=== PATIENT | female | born 1945 | race Caucasian/White ===

== ENCOUNTER 2022-06-15 03:05 | Inpatient (IN) | payer MEDICARE, BC ==
[~2022-06-15] VITALS: Ht 160 cm; Wt 57.6 kg
--- NOTE | 2022-06-15 03:55 | NUR ---
COVID ANTIGEN SWAB COLLECTED AND SENT TO LAB
--- NOTE | 2022-06-15 03:58 | NUR ---
RFA #20G S/L BLOOD COLLECTED AND SENT TO LAB
--- NOTE | 2022-06-15 04:05 | NUR ---
PT TAKEN TO CT VIA [facility]
[2022-06-15 04:09] LABS: BASOPHILS # (AUTO) 0.1 K/uL (0.0-0.2); EOSINOPHILS % (AUTO) 2.5 % (0.0-6.0); HEMATOCRIT 47 % (33-45); HEMOGLOBIN 15.7 g/dL (11.5-14.8); LYMPHOCYTES # (AUTO) 1.7 K/uL (0.8-4.8); LYMPHOCYTES % (AUTO) 27.3 % (20.0-44.0); MEAN CORPUSCULAR HGB CONC 34 g/dl (31.0-36.0); MEAN CORPUSCULAR VOLUME 99 fL (82-100); MONOCYTES # (AUTO) 0.3 K/uL (0.1-1.30); MONOCYTES % (AUTO) 5.7 % (2.0-12.0); NEUTROPHILS # (AUTO) 3.9 K/uL (1.8-8.9); NEUTROPHILS % (AUTO) 63.5 % (43.0-81.0); PLATELET COUNT (AUTO) 234 K/uL (150-450); WHITE BLOOD COUNT (AUTO) 6.1 K/uL (4.3-11.0)
[2022-06-15 04:16] LABS: CALCIUM, SERUM 8.8 mg/dL (8.5-10.1); CARBON DIOXIDE 26 mmol/L (21-32); CHLORIDE 101 mmol/L (98-107); CREATININE 0.8 mg/dL (0.6-1.3); GLUCOSE 98 mg/dL (74-106); POTASSIUM 3.4 mmol/L (3.5-5.1); SODIUM SERUM 140 mmol/L (136-145); UREA NITROGEN, BLOOD 14 mg/dL (7-18)
[2022-06-15 04:22] LABS: ALANINE AMINOTRANSFERASE 75 U/L (12-78); ALBUMIN 3.6 g/dL (3.4-5.0); ALKALINE PHOSPHATASE 82 U/L (46-116); ASPARTATE AMINOTRANSFERASE 91 U/L (15-37); BILIRUBIN,DIRECT 0.1 mg/dL (0.0-0.2); BILIRUBIN,TOTAL 0.3 mg/dL (0.2-1.0); TOTAL PROTEIN, SERUM 6.9 g/dL (6.4-8.2)
--- NOTE | 2022-06-15 04:43 | NUR ---
URINE COLLECTED AND SENT TO LAB
[2022-06-15] MEDS ORDERED: CEFTRIAXONE 1GM BAG (ER ONLY) 1 GM/50 ML PIGGYBACK IV ONE (05:00)
[2022-06-15] MEDS ORDERED: AZITHROMYCIN 500 MG in IV D5W 250 ML IV ONE (05:00)
[2022-06-15] MEDS ORDERED: CEFTRIAXONE 1GM BAG (ER ONLY) 50 ML IV ONE (05:08)
[2022-06-15] MEDS ORDERED: AZITHROMYCIN 500 MG VIAL ONE (05:09)
[2022-06-15 05:19] LABS: BILIRUBIN,URINE SMALL (NEGATIVE); COLOR,URINE DARK YELLOW (YELLOW); LEUKOCYTE ESTERASE ,URINE NEGATIVE (NEGATIVE); NITRITE, URINE NEGATIVE (NEGATIVE); PH,URINE 5.5 (5.0-8.0); PROTEIN,URINE TRACE mg/dl (NEGATIVE); UGLUCOSE NEGATIVE (NEGATIVE); UROBILINOGEN,URINE 0.2 EU/dL (0.2)
[2022-06-15] MEDS ORDERED: ERGO500093 PO (05:25)
[2022-06-15] MEDS ORDERED: HYDR12.55 PO (05:25)
[2022-06-15] MEDS ORDERED: LOSA50TA39 PO (05:25)
[2022-06-15] MEDS ORDERED: TEMAZEPAM 15 MG CAPSULE PO PRN (05:30)
[2022-06-15] MEDS ORDERED: MORPHINE SULFATE INJ 2 MG/ML DISP.SYRIN IV PRN (05:30)
[2022-06-15] MEDS ORDERED: Z GUARD REMEDY 4 OZ OINT TP PRN (05:30)
[2022-06-15] MEDS ORDERED: MAGNESIUM HYDROXIDE 30 ML UDC PO PRN (05:30)
[2022-06-15] MEDS ORDERED: MAG HYDROX/AL HYDROX/SIMETH 30 ML UDC PO PRN (05:30)
[2022-06-15] MEDS ORDERED: ACETAMINOPHEN 325 MG TABLET PO PRN (05:30)
[2022-06-15] MEDS ORDERED: IV NS 0.9% 1,000 ML IV PRN (05:30)
[2022-06-15] MEDS ORDERED: ONDANSETRON HCL/PF 4 MG/2 ML VIAL IVP PRN (05:30)
[2022-06-15] MEDS ORDERED: HYDROCODONE/APAP 5/325MG TABLET PO PRN (05:30)
--- NOTE | 2022-06-15 06:42 | NUR ---
PT DESATTING 90% ON R/A WHILE SLEEPING C/O SOB. PUT PT ON O2 2LPM VIA N/C SATTING AT 98%; TOLERATING WELL
[2022-06-15] MEDS ORDERED: PANTOPRAZOLE 40 MG TABLET.DR PO ONE (07:43)
[2022-06-15] MEDS: PANTOPRAZOLE 40 MG TABLET.DR PO SCH (07:56)
--- NOTE | 2022-06-15 07:56 | NUR ---
GOT BED 304-1
--- NOTE | 2022-06-15 08:03 | NUR ---
FOOD TRAY PROVIDED
--- NOTE | 2022-06-15 08:30 | NUR ---
REPORT GIVEN TO WOODY FOR SHAHEEN
--- NOTE | 2022-06-15 08:47 | NUR ---
PT TRANSFERRED TO MED SURG IN STABLE CONDITION
[2022-06-15] MEDS ORDERED: POTASSIUM CHLORIDE 20 MEQ TAB.PRT.SR PO ONE (10:00)
[2022-06-15 11:22] VITALS: BP 142/75
--- NOTE | 2022-06-15 11:46 | NUR ---
RN ADMITTING NOTES PATIENT ADMITTED FROM ER ACCOMPANIED BY ONE ER STAFF VIA [facility]. PATIENT IS A/Ox4 ABLE TO MAKE NEEDS KNOWN. PT ARRIVED SOON PATIENT ARRIVED TO UNIT AND EVALUATED. ABLE TO AMBULATE WITH ASSISTIVE DEVICE AND SUPERVISION. ON ROOM AIR NO S/S OF RESPIRATORY DISTRESS. IV ACCESS R FA #20G. INTACT AND PATENT. PATIENT ORIENTED TO ROOM, STAFF, AND CALL LIGHT. FULL BODY ASSESSMENT COMPLETED: CARDIAC WNL, RESPIRATORY R AND L LOBE, DIMINISHED RESPIRATORY SOUNDS, GI/ WNL, SKIN INTACT. SAFETY MEASURES IN PLACE: BED LOCKED AND IN LOWEST POSITION, HOB ELEVATED, SIDE RAILS UPx2, CALL LIGHT WITHIN REACH. WILL CONTINUE TO MONITOR.
[2022-06-15 16:00] VITALS: BP 155/78
--- NOTE | 2022-06-15 18:41 | NUR ---
MS RN CLOSING NOTES RECEIVED PATIENT AWAKE IN BED RESTING, A/Ox4. ON ROOM AIR NO S/S OF PAIN OR DISCOMFORT. IV ACCESS R AC#20G NS RUNNING 75 ML/HR. INTACT AND PATIENT NO S/S OF INFILTRATION. PATIENT IS AMBULATORY WITH ASSISTANCE, HAS BATHROOM PRIVILEGES. SKIN INTACT. ALL PRESCRIBED MEDICATION ADMINISTERED. SAFETY MEASURES MAINTAINED: BED LOCKED AND IN LOWEST POSITION, SIDE RAILS UP x2, CALL LIGHT WITHIN REACH, HOB ELEVATED. WILL ENDORSE TO NEXT SHIFT ANY SHAHEEN.
--- NOTE | 2022-06-15 19:50 | NUR ---
MS RN OPENING NOTES PATIENT ASLEEP IN BED RESTING, A/Ox4. ON ROOM AIR NO S/S OF PAIN OR DISCOMFORT. IV ACCESS R AC#20G NS RUNNING 75 ML/HR. INTACT AND PATIENT NO S/S OF INFILTRATION. PATIENT IS AMBULATORY WITH ASSISTANCE, HAS BATHROOM PRIVILEGES. SKIN INTACT. SAFETY MEASURES MAINTAINED: BED LOCKED AND IN LOWEST POSITION, SIDE RAILS UP x2, CALL LIGHT WITHIN REACH, HOB ELEVATED.
[2022-06-15 20:00] VITALS: BP 153/78
[2022-06-16 05:48] LABS: BASOPHILS % (AUTO) 0.6 % (0.0-2.0); HEMATOCRIT 39 % (33-45); LYMPHOCYTES # (AUTO) 1.6 K/uL (0.8-4.8); LYMPHOCYTES % (AUTO) 28.6 % (20.0-44.0); MEAN CORPUSCULAR HGB CONC 33 g/dl (31.0-36.0); MEAN CORPUSCULAR VOLUME 99 fL (82-100); MONOCYTES # (AUTO) 0.5 K/uL (0.1-1.30); MONOCYTES % (AUTO) 9.2 % (2.0-12.0); NEUTROPHILS # (AUTO) 3.4 K/uL (1.8-8.9); NEUTROPHILS % (AUTO) 59.6 % (43.0-81.0); PLATELET COUNT (AUTO) 198 K/uL (150-450); RED BLOOD CELL COUNT(AUTO) 3.97 MIL/uL (4.0-5.2); WHITE BLOOD COUNT (AUTO) 5.7 K/uL (4.3-11.0)
[2022-06-16] MEDS ORDERED: CEFTRIAXONE 1 G VIAL ONE (06:06)
[2022-06-16] MEDS: AZITHROMYCIN 250 MG TABLET PO SCH (06:07)
[2022-06-16] MEDS: CEFTRIAXONE 1 G in IV D5W 50 ML IV SCH (06:07)
[2022-06-16 06:55] LABS: CALCIUM, SERUM 7.9 mg/dL (8.5-10.1); CREATININE 0.7 mg/dL (0.6-1.3); PHOSPHORUS 3.2 mg/dL (2.5-4.9); POTASSIUM 4.1 mmol/L (3.5-5.1)
[2022-06-16 06:58] LABS: THYROID STIMULATING HORMONE 2.495 uIU/mL (0.358-3.74)
--- NOTE | 2022-06-16 07:10 | NUR ---
MS RN CLOSING NOTES PATIENT ASLEEP IN BED RESTING, A/Ox4. ON ROOM AIR NO S/S OF PAIN OR DISCOMFORT. IV ACCESS RAC#22G NS RUNNING 75 ML/HR. INTACT AND PATIENT NO S/S OF INFILTRATION. PATIENT IS AMBULATORY WITH ASSISTANCE, HAS BATHROOM PRIVILEGES. SKIN INTACT. SAFETY MEASURES MAINTAINED: BED LOCKED AND IN LOWEST POSITION, SIDE RAILS UP x2, CALL LIGHT WITHIN REACH, HOB ELEVATED.ALL DUE MEDS GIVEN AND TOLERATED WELL WILL ENDORSE CARE TO DAY SHIFT NURSE.
--- NOTE | 2022-06-16 07:26 | NUR ---
MS RN OPENING NOTE RECEIVED PT AWAKE AND RESTING IN BED. PT A/OX4, ABLE TO MAKE NEEDS KNOWN. ON O2 AT 2L/MIN VIA NASAL CANNULA, TOLERATING WELL. NO SOB NOTED. NOT IN ANY SIGN OF RESPIRATORY DISTRESS. IV ACCESS IN LAC G#20 WITH NS INFUSING AT 75ML/HR. SAFETY MEASURES IN PLACE: BED IN LOWEST AND LOCKED POSITION, SIDE RAILS UPX2, AND CALL LIGHT WITHIN EASY REACH. WILL CONTINUE TO MONITOR PT.
[2022-06-16 08:00] VITALS: BP 180/70
[2022-06-16] MEDS: PANTOPRAZOLE 40 MG TABLET.DR PO SCH (08:04)
--- NOTE | 2022-06-16 09:15 | NUR ---
RN NOTE PT'S O2 ON ROOM AIR WAS ASSESSED WITH UTILITY ARBORIST, PREETI AND NOTED WITH 86% SPO2 ON ROOM AIR. PT UNABLE TO TOLERATE ROOM AIR AT THIS TIME AND O2 AT 2L/MIN VIA NASAL CANNULA PLACED BACK ON PT WITH SPO2 AT 96%.
--- NOTE | 2022-06-16 12:15 | NUR ---
RN NOTE FOLLOWED UP WITH PHARMACY THE PT'S VANCO IV MEDICATION SCHEDULED AT 1200. PER PHARMACIST WILL SEND TO THE UNIT.
[2022-06-16] MEDS: VANCOMYCIN 0.75 GM in IV D5W 250 ML IV SCH ×2 (12:45→23:47)
--- NOTE | 2022-06-16 14:50 | NUR ---
RN NOTE PT C/O OF FEELING VERY ANXIOUS AND REQUESTED FOR ATIVAN MEDICATION. ENCOURAGED PT TO TRY TO DO DEEP BREATHING EXERCISES TO HELP HER FEEL CALM BUT IT WAS INEFFECTIVE WHEN PT TRIED. CALLED DR. REYNALDO RENE AND MADE HIM AWARE OF PT'S CONDITION WITH ORDERS TO GIVE PT ATIVAN 0.5MG 1 TAB PO X1 TIME DOSE. ORDERS CARRIED OUT.
--- NOTE | 2022-06-16 14:58 | NUR ---
RN NOTE ATIVAN 0.5MG 1 TAB PO GIVEN ORDERED X1 TIME DOSE FOR PT'S ANXIETY. WILL MONITOR AND REASSESS PT.
[2022-06-16] MEDS ORDERED: LORAZEPAM 0.5 MG TABLET PO ONE (15:00)
[2022-06-16 16:00] VITALS: BP 167/66
--- NOTE | 2022-06-16 18:15 | NUR ---
RN NOTE PT'S IV ACCESS LAC G #20 AND ON R WRIST G #20 NOT WORKING UPON FLUSHING LINE. REATTEMPTED TO REINSERT BUT PT IS HARD STICK. CALLED DR. REYNALDO RENE WITH ORDERS TO DO A MIDLINE. ORDERS CARRIED OUT. AWAITING FOR MIDLINE INSERTION.
--- NOTE | 2022-06-16 18:54 | NUR ---
MS RN CLOSING NOTE PT AWAKE AND RESTING IN BED. PT A/OX4, ABLE TO MAKE NEEDS KNOWN. ON O2 AT 2L/MIN VIA NASAL CANNULA, TOLERATING WELL. NO SOB NOTED. NOT IN ANY SIGN OF RESPIRATORY DISTRESS. STILL WAITING FOR IV ACCESS FOR MIDLINE INSERTION. ALL NEEDS ATTENDED. KEPT CLEAN AND COMFORTABLE. SAFETY MEASURES IN PLACE: BED IN LOWEST AND LOCKED POSITION, SIDE RAILS UPX2, AND CALL LIGHT WITHIN EASY REACH. WILL ENDORSE TO FOIL OPERATOR NURSE FOR SHAHEEN.
--- NOTE | 2022-06-16 19:38 | NUR ---
MS RN OPENING NOTE PT AWAKE AND RESTING IN BED. PT A/OX4, ABLE TO MAKE NEEDS KNOWN. ON O2 AT 2L/MIN VIA NASAL CANNULA, TOLERATING WELL. NO SOB NOTED. NOT IN ANY SIGN OF RESPIRATORY DISTRESS. STILL WAITING FOR IV ACCESS FOR MIDLINE INSERTION. ALL NEEDS ATTENDED. KEPT CLEAN AND COMFORTABLE. SAFETY MEASURES IN PLACE: BED IN LOWEST AND LOCKED POSITION, SIDE RAILS UPX2, AND CALL LIGHT WITHIN EASY REACH.
[2022-06-16 20:00] VITALS: BP 151/93
--- NOTE | 2022-06-16 23:47 | NUR ---
RN NOTE PT HAS NO IV LINE FOR ADMINISTRATION OF ANTIBIOTIC AWAITING MIDLINE INSERTION IN THE AM. PT AWARE AND PREFERS WE DO NOT ATTEMPT TO INSERT A PERIPHERAL LINE " IM TITERED OF GETTING POCKED JUST LET ME SLEEP AND HAVE THE DR PUT THE SPECIAL LINE " RISK AND BENEFITS EXPLAINED X3 REFUSED X3.
--- NOTE | 2022-06-17 04:46 | NUR ---
RN NOTE PRN NORCO GIVEN FOR PAIN TOLERATED WELL.
[2022-06-17] MEDS: AZITHROMYCIN 250 MG TABLET PO SCH (05:23)
[2022-06-17] MEDS: CEFTRIAXONE 1 G in IV D5W 50 ML IV SCH (06:00)
[2022-06-17 06:03] LABS: BASOPHILS % (AUTO) 0.8 % (0.0-2.0); EOSINOPHILS % (AUTO) 1.8 % (0.0-6.0); HEMATOCRIT 39 % (33-45); HEMOGLOBIN 12.9 g/dL (11.5-14.8); LYMPHOCYTES # (AUTO) 1.2 K/uL (0.8-4.8); LYMPHOCYTES % (AUTO) 22.4 % (20.0-44.0); MEAN CORPUSCULAR HGB CONC 33 g/dl (31.0-36.0); MEAN CORPUSCULAR VOLUME 99 fL (82-100); MONOCYTES # (AUTO) 0.5 K/uL (0.1-1.30); MONOCYTES % (AUTO) 9.8 % (2.0-12.0); NEUTROPHILS # (AUTO) 3.4 K/uL (1.8-8.9); NEUTROPHILS % (AUTO) 65.2 % (43.0-81.0); PLATELET COUNT (AUTO) 205 K/uL (150-450); RED BLOOD CELL COUNT(AUTO) 3.95 MIL/uL (4.0-5.2); WHITE BLOOD COUNT (AUTO) 5.2 K/uL (4.3-11.0)
[2022-06-17 06:54] LABS: ALBUMIN 2.8 g/dL (3.4-5.0); BILIRUBIN,TOTAL 0.8 mg/dL (0.2-1.0); CALCIUM, SERUM 8.2 mg/dL (8.5-10.1); CREATININE 0.8 mg/dL (0.6-1.3); MAGNESIUM 1.9 mg/dL (1.8-2.4); POTASSIUM 4.1 mmol/L (3.5-5.1); TOTAL PROTEIN, SERUM 5.5 g/dL (6.4-8.2)
--- NOTE | 2022-06-17 07:20 | NUR ---
MS RN OPENING NOTE RECEIVED PT AWAKE AND RESTING IN BED. PT A/OX4, ABLE TO MAKE NEEDS KNOWN. ON O2 AT 2L/MIN VIA NASAL CANNULA, TOLERATING WELL. NO SOB NOTED. NOT IN ANY SIGN OF RESPIRATORY DISTRESS. PT HAS NO IV ACCESS, STILL WAITING FOR IV NURSE TO INSERT MIDLINE. WILL FOLLOW UP WITH IV NURSE. SAFETY MEASURES IN PLACE: BED IN LOWEST AND LOCKED POSITION, SIDE RAILS UPX2, AND CALL LIGHT WITHIN EASY REACH. WILL CONTINUE TO MONITOR PT.
[2022-06-17 07:50] LABS: PHOSPHORUS 3.4 mg/dL (2.5-4.9)
--- NOTE | 2022-06-17 07:50 | NUR ---
RN NOTE MIDLINE INSERTED IN AME G#18 BY IV NURSE, JOSE G SANTA. NS RESUMED, INFUSING AT 75ML/HR.
[2022-06-17] MEDS: PANTOPRAZOLE 40 MG TABLET.DR PO SCH (08:08)
[2022-06-17 08:29] VITALS: BP 150/84
[2022-06-17] MEDS: VANCOMYCIN 0.75 GM in IV D5W 250 ML IV SCH (12:18)
[2022-06-17 16:41] VITALS: BP 153/71
--- NOTE | 2022-06-17 19:00 | NUR ---
delia rn opening received patient in bed, a/ox4. no s/s of apparent distress on 2lpm of o2 via nc. c/o headache and requesting for Tylenol-- will medicate. mili ferris #18g running ns @75mls/hr. call light within reach. re-oriented and encouraged with the use of call light. safety in place. will continue with the plan of care for patient.
--- NOTE | 2022-06-17 19:30 | NUR ---
MS RN CLOSING NOTE PT AWAKE AND RESTING IN BED. PT A/OX4, ABLE TO MAKE NEEDS KNOWN. ON O2 AT 2L/MIN VIA NASAL CANNULA, TOLERATING WELL. NO SOB NOTED. NOT IN ANY SIGN OF RESPIRATORY DISTRESS. IV ACCESS ON AME G#18 MIDLINE INTACT AND PATENT WITH NS INFUSING AT 75ML/HR. ALL NEEDS ATTENDED. KEPT CLEAN AND COMFORTABLE. SAFETY MEASURES IN PLACE: BED IN LOWEST AND LOCKED POSITION, SIDE RAILS UPX2, AND CALL LIGHT WITHIN EASY REACH. ENDORSED TO TOOL KEEPER NURSE FOR SHAHEEN.
--- NOTE | 2022-06-17 19:33 | NUR ---
Patient given Tylenol for headache. given snacks and encouraged fluid intake. will monitor.
[2022-06-17 20:00] VITALS: BP 158/81
[2022-06-18] MEDS: VANCOMYCIN 0.75 GM in IV D5W 250 ML IV SCH (00:11)
[2022-06-18] MEDS: CEFTRIAXONE 1 G in IV D5W 50 ML IV SCH (06:01)
[2022-06-18] MEDS: AZITHROMYCIN 250 MG TABLET PO SCH (06:02)
--- NOTE | 2022-06-18 07:22 | NUR ---
noc rn closing report given to JOSE G Hemphill for continuity of patient care.
--- NOTE | 2022-06-18 07:49 | NUR ---
MS RN OPENING NOTE RECEIVED PT AWAKE , SITTING IN BED. PT A/OX4, ABLE TO MAKE NEEDS KNOWN , ROOM AIR AND TOLERATING WELL. NO SOB OR DISTRESS NOTED AT THIS TIME . IV ACCESS ON AME MIDLINE WITH NS @75 ML /HR . NO C/O OF PAIN AND DISCOMFORT NOTED , . SAFETY MEASURES IN PLACE: BED IN LOWEST AND LOCKED POSITION, SIDE RAILS UPX2, AND CALL LIGHT WITHIN EASY REACH. WILL CONTINUE TO MONITOR PT.
[2022-06-18 08:00] VITALS: BP 184/82
[2022-06-18] MEDS: PANTOPRAZOLE 40 MG TABLET.DR PO SCH (08:27)
[2022-06-18] MEDS ORDERED: VANCOMYCIN 1 GM in IV D5W 250ml IV SCH (13:00)
[2022-06-18] MEDS ORDERED: VALSARTAN 80 MG TABLET PO ONE (13:30)
[2022-06-18 13:32] VITALS: BP 191/73
--- NOTE | 2022-06-18 14:30 | NUR ---
MS TRAFFIC CHECKER NOTES NOTE PT AWAKE , SITTING IN BED. PT A/OX4, ABLE TO MAKE NEEDS KNOWN , ROOM AIR AND TOLERATING WELL. NO SOB OR DISTRESS NOTED AT THIS TIME . ALL DUE MEDS GIVEN ORDERED , NOTED WITH BP OF 184/ 82 , MD AWARE AND WITH ORDER TO HAVE DIOVAN 160 MG PO DAILY , GIVEN ORDERED , SEEN BY [facility] AND AMBULATE WITH [facility] LIKE MORE THAN 500 FEET , PATIENT WAS SEEN BY DR REYNALDO RENE ANS MEDICALLY CLEARED FOR DISCHARGE TO HOME , DAUGHTER PRESENT DURING MD ROUNDS AND DISCUSSED REGARDING PATIENT PRESENT MEDICAL CONDITION , ALL DISCHARGE PAPERS WERE PREPARED AND DISCHARGE INSTRUCTIONS DISCUSSED REGARDING MEDS , SAFETY , RISK OF SMOKING , PRESENT CONDITION AND WHEN TO CALL 911 IN CASE OF EMERGENCY AND PATIENT ABLE TO UNDERSTAND INSTRUCTIONS PROVIDED , ALL BELONGINGS WERE ACCOUNTED UPON DISCHARGE AND FORM WAS SIGNED BY THE PATIENT , PATIENT WILL BE GOING TO DAUGHTERS HOME AND WILL PROVIDE TRANSPORTATION , ID BAND WAS REMOVED AND MIDLINE AME WAS REMOVED AND PRESSURE DRESSING APPLIED , WITH NO S/S OF BLEEDING AND PATIENT ACCOMPANIED TO THE LOBBY VIA WHEEL CHAIR BY LINDA PINEDA , NO C/O OF PAIN OR DISCOMFORT AND NO SOB OR DISTRESS NOTED , STABLE WHEN DISCHARGE TO HOME WITH DAUGHTER .
== END 2022-06-18 15:32 | disposition home health service (06) | DRG 194 ==
LOC: ER 03:12 → TRANSITION 05:46 → MED 08:01
PROC: 05HB33Z Insertion of Infusion Device into Right Basilic Vein, Percutaneous Approach (ICD-10-PCS; principal; 2022-06-17)
DX: J15.9 Unspecified bacterial pneumonia (principal); J98.11 Atelectasis; E55.9 Vitamin D deficiency, unspecified; I10 Essential (primary) hypertension; Z20.822 Contact with and (suspected) exposure to COVID-19; Z66 Do not resuscitate; Z79.899 Other long term (current) drug therapy; F17.210 Nicotine dependence, cigarettes, uncomplicated; I70.0 Atherosclerosis of aorta
CPT/HCPCS: 36410; 36415; 70450-TC; 71045-TC; 80048-TC; 80053-TC; 80076-TC; 80202-TC; 83605-TC; 83735-TC; 84100-TC; 84443-TC; 84484-TC; 85025-TC; 85730-TC; 87040-TC; 87081-TC; 87186-TC; 97110-TC; 97116-TC; 97530-TC; C9803; G0378; J0456; J0696; J2270; J2405; J3370; J7030; J7060